=== PATIENT | male | born 1985 | race Caucasian/White ===

== ENCOUNTER 2023-01-29 21:19 | Emergency (ER) | payer BC ==
[2023-01-29] MEDS ORDERED: HYDROmorphone 1 MG/ML Syringe IM ONE ×2 (22:13→23:31)
[2023-01-29] MEDS ORDERED: Dexamethasone 10 MG/ML SDV IM STA (22:13)
[2023-01-29] MEDS ORDERED: Ketorolac 30 MG/ML SDV IM ONE (22:13)
[2023-01-29 23:54] LABS: APPEARANCE,URINE CLEAR; BILIRUBIN,URINE NEGATIVE (NEGATIVE); COLOR,URINE YELLOW; GLUCOSE,URINE NEGATIVE (NEGATIVE); KETONES,URINE NEGATIVE (NEGATIVE); LEUKOCYTE ESTERASE,URINE NEGATIVE (NEGATIVE); NITRITE,URINE NEGATIVE (NEGATIVE); OCCULT BLOOD,URINE TRACE-INTACT (NEGATIVE); PH,URINE 5.5 (5.0-8.0); PROTEIN,URINE NEGATIVE (NEGATIVE); UROBILINOGEN,URINE 0.2 EU/dL (<2.0)
[2023-01-29 23:57] LABS: BACTERIA,URINE RARE (NEGATIVE); EPITHELIAL CELLS,URINE FEW (NONE-FEW); RBC,URINE 0-2 (0-2/HPF); WBC,URINE 0-2 (0-5/HPF)
== END 2023-01-30 00:21 | disposition home or self-care (01) ==
LOC: MW.ED 21:19
DX: M54.50 Low back pain, unspecified (principal)
CPT/HCPCS: 81001; 96372; 99283; J1100; J1170; J1885

== ENCOUNTER 2023-02-12 00:35 | Observation (INO) | payer BC ==
[2023-02-12] MEDS ORDERED: Ondansetron 4 MG/2 ML SDV IVPUSH ONE (01:25)
[2023-02-12 01:30] LABS: BASOPHILS PERCENT AUTO 0.1 % (0.0-1.5); EOSINOPHILS ABSOLUTE AUTO 0.2 K/uL (0.0-0.7); HEMOGLOBIN 14.1 g/dL (13.0-17.0); LYMPHOCYTES ABSOLUTE AUTO 3.1 K/uL (0.6-2.4); LYMPHOCYTES PERCENT AUTO 19.3 % (16.0-40.0); MEAN CORPUSCULAR HEMOGLOBIN 26.6 pg (27.0-32.0); MEAN CORPUSCULAR HGB CONC 32.8 g/dL (31.0-37.0); MONOCYTES ABSOLUTE AUTO 1.1 K/uL (0.0-0.8); NEUTROPHILS ABSOLUTE AUTO 11.5 K/uL (1.4-5.7); NEUTROPHILS PERCENT AUTO 72.6 % (48.0-80.0); NRBC ABSOLUTE 0 K/uL; PLATELET COUNT,PLT 302 K/uL (150-400); RED BLOOD CELL COUNT 5.31 M/uL (4.50-5.90); WHITE BLOOD CELL COUNT,WBC 15.82 K/uL (4.0-11.0)
[2023-02-12] MEDS ORDERED: Morphine 4 MG/ML Syringe IVPUSH ONE (01:42)
[2023-02-12 01:52] LABS: APPEARANCE,URINE CLEAR; BILIRUBIN,URINE NEGATIVE (NEGATIVE); COLOR,URINE YELLOW; GLUCOSE,URINE NEGATIVE (NEGATIVE); KETONES,URINE NEGATIVE (NEGATIVE); LEUKOCYTE ESTERASE,URINE NEGATIVE (NEGATIVE); NITRITE,URINE NEGATIVE (NEGATIVE); OCCULT BLOOD,URINE SMALL (NEGATIVE); PH,URINE 5.5 (5.0-8.0); PROTEIN,URINE NEGATIVE (NEGATIVE); UROBILINOGEN,URINE 0.2 EU/dL (<2.0)
[2023-02-12 01:57] LABS: A/G RATIO 0.8 (0.9-1.6); ALBUMIN 3.7 g/dL (3.4-5.0); BILIRUBIN TOTAL 0.2 mg/dL (0.2-1.0); CALCIUM 9.2 mg/dL (8.5-10.1); CARBON DIOXIDE,CO2 27.6 mmol/L (21.0-32.0); EST CRCL DRUG DOSING (CG) 103.1 mL/min; POTASSIUM,K 4.3 mmol/L (3.5-5.1); PROTEIN TOTAL,TP 8.4 g/dL (6.4-8.2)
[2023-02-12 02:14] LABS: BACTERIA,URINE RARE (NEGATIVE); EPITHELIAL CELLS,URINE RARE (NONE-FEW); RBC,URINE 0-2 (0-2/HPF); WBC,URINE 0-2 (0-5/HPF)
[2023-02-12] MEDS ORDERED: Ketorolac 30 MG/ML SDV IVPUSH ONE (03:19)
[2023-02-12] MEDS ORDERED: Iopamidol 755 MG/ML 500 ML Multipack Bottle IVPUSH ONE (03:20)
[2023-02-12] MEDS ORDERED: Ertapenem 1 GM in Sodium Chloride 0.9% 50 ML IV ONE (04:32)
[2023-02-12] MEDS ORDERED: Sodium Chloride 0.9% 1,000 ML IV STA (04:56)
[2023-02-12] MEDS ORDERED: Ketorolac 30 MG/ML SDV IVPUSH PRN (06:19)
[2023-02-12] MEDS ORDERED: Ondansetron 4 MG/2 ML SDV IVPUSH PRN (06:19)
== END 2023-02-12 11:30 | disposition home or self-care (01) ==
LOC: MW.ED 00:35 → MW.MS 04:49
PROVIDERS: ADMIT Hospitalist; ATTEND Hospitalist
DX: K80.10 Calculus of gallbladder with chronic cholecystitis without obstruction (principal); K76.0 Fatty (change of) liver, not elsewhere classified
CPT/HCPCS: 36415; 74177; 76705; 80053; 81001; 83690; 85025; J1335; J1885; J2270; J2405; J3490; J7030; Q9967; 96365; 96375; 99285-25; G0378

== ENCOUNTER 2024-10-21 22:13 | Observation (INO) | payer BC ==
[2024-10-21 22:52] LABS: BASOPHILS ABSOLUTE AUTO 0.05 K/uL (0.00-0.20); BASOPHILS PERCENT AUTO 0.2 % (0.0-1.0); EOSINOPHILS ABSOLUTE AUTO 0.05 K/uL (0.00-0.45); EOSINOPHILS PERCENT AUTO 0.2 % (0.0-6.0); HEMATOCRIT 42.6 % (42.0-52.0); HEMOGLOBIN 14.3 g/dL (14.0-18.0); IMMATURE GRAN ABSOLUTE AUTO 0.12 K/uL (0.00-0.05); IMMATURE GRAN PERCENT AUTO 0.6 % (0.0-0.4); LYMPHOCYTES ABSOLUTE AUTO 4.43 K/uL (1.00-4.80); LYMPHOCYTES PERCENT AUTO 21.6 % (24.0-44.0); MEAN CORPUSCULAR HEMOGLOBIN 26.1 pg (28.0-32.0); MEAN CORPUSCULAR HGB CONC 33.6 g/dL (32.0-36.0); MEAN CORPUSCULAR VOLUME 77.9 fL (83.0-99.0); MONOCYTES ABSOLUTE AUTO 1.07 K/uL (0.00-0.80); MONOCYTES PERCENT AUTO 5.2 % (0.0-8.0); NEUTROPHILS ABSOLUTE AUTO 14.77 K/uL (1.80-7.70); NEUTROPHILS PERCENT AUTO 72.2 % (41.0-71.0); PLATELET COUNT,PLT 322 K/uL (150-400); RED BLOOD CELL COUNT 5.47 M/uL (4.52-5.90); WHITE BLOOD CELL COUNT,WBC 20.49 K/uL (3.9-11.3)
[2024-10-21] MEDS: Ondansetron 4 MG/2 ML SDV IVPUSH ONE (22:56)
[2024-10-21] MEDS: Ketorolac 30 MG/ML SDV IVPUSH ONE (22:56)
[2024-10-21] MEDS: Morphine 4 MG/ML Syringe IVPUSH ONE (22:57)
[2024-10-21] MEDS: Sodium Chloride 0.9% 1,000 ML IV ONE (22:58)
[2024-10-21 23:38] LABS: A/G RATIO 0.8 (0.9-1.6); ALBUMIN 3.8 g/dL (3.4-5.0); BILIRUBIN TOTAL 0.5 mg/dL (0.2-1.0); CALCIUM 9.2 mg/dL (8.5-10.1); CARBON DIOXIDE,CO2 19.8 mmol/L (21.0-32.0); CREATININE 1.2 mg/dL (0.8-1.3); EST CRCL DRUG DOSING (CG) 81.54 mL/min; POTASSIUM,K 3.4 mmol/L (3.5-5.1); PROTEIN TOTAL,TP 8.7 g/dL (6.4-8.2)
[2024-10-22 00:08] LABS: APPEARANCE,URINE CLEAR; BILIRUBIN,URINE NEGATIVE (NEGATIVE); COLOR,URINE YELLOW; GLUCOSE,URINE NEGATIVE (NEGATIVE); KETONES,URINE >=80 mg/dL (NEGATIVE); LEUKOCYTE ESTERASE,URINE NEGATIVE (NEGATIVE); NITRITE,URINE NEGATIVE (NEGATIVE); OCCULT BLOOD,URINE TRACE-INTACT (NEGATIVE); PROTEIN,URINE 30 mg/dL (NEGATIVE); UROBILINOGEN,URINE 0.2 EU/dL (<2.0)
[2024-10-22 00:18] LABS: BACTERIA,URINE NOT SEEN (NEGATIVE); EPITHELIAL CELLS,URINE RARE (NONE-FEW); MUCUS,URINE LIGHT (NONE-MOD); WBC,URINE 0-2 (0-5/HPF)
[2024-10-22] MEDS: Ketorolac 30 MG/ML SDV IVPUSH STA (00:20)
[2024-10-22] MEDS: Famotidine 20 MG/2 ML SDV IVPUSH ONE (00:20)
[2024-10-22] MEDS: Iopamidol 755 MG/ML 500 ML Multipack Bottle IVPUSH STA (07:24)
[2024-10-22 08:46] LABS: BASOPHILS ABSOLUTE AUTO 0.04 K/uL (0.00-0.20); BASOPHILS PERCENT AUTO 0.2 % (0.0-1.0); EOSINOPHILS ABSOLUTE AUTO 0.02 K/uL (0.00-0.45); EOSINOPHILS PERCENT AUTO 0.1 % (0.0-6.0); HEMOGLOBIN 13.2 g/dL (14.0-18.0); IMMATURE GRAN ABSOLUTE AUTO 0.09 K/uL (0.00-0.05); IMMATURE GRAN PERCENT AUTO 0.5 % (0.0-0.4); LYMPHOCYTES ABSOLUTE AUTO 2.53 K/uL (1.00-4.80); LYMPHOCYTES PERCENT AUTO 14.7 % (24.0-44.0); MEAN CORPUSCULAR HEMOGLOBIN 25.8 pg (28.0-32.0); MEAN CORPUSCULAR VOLUME 78.1 fL (83.0-99.0); MEAN PLATELET VOLUME 9.7 fL (9.4-12.4); MONOCYTES ABSOLUTE AUTO 1.21 K/uL (0.00-0.80); NEUTROPHILS ABSOLUTE AUTO 13.37 K/uL (1.80-7.70); NEUTROPHILS PERCENT AUTO 77.5 % (41.0-71.0); PLATELET COUNT,PLT 297 K/uL (150-400); RED BLOOD CELL COUNT 5.12 M/uL (4.52-5.90); WHITE BLOOD CELL COUNT,WBC 17.26 K/uL (3.9-11.3)
[2024-10-22 09:09] LABS: A/G RATIO 0.7 (0.9-1.6); ALBUMIN 3.5 g/dL (3.4-5.0); BILIRUBIN TOTAL 0.7 mg/dL (0.2-1.0); CALCIUM 8.9 mg/dL (8.5-10.1); CARBON DIOXIDE,CO2 25.3 mmol/L (21.0-32.0); EST CRCL DRUG DOSING (CG) 97.85 mL/min; POTASSIUM,K 3.9 mmol/L (3.5-5.1); PROTEIN TOTAL,TP 8.2 g/dL (6.4-8.2)
[2024-10-22] MEDS: Ampicillin/Sulbactam Na 3 GM in Sodium Chloride 0.9% 100 ML IV ONE (11:31)
[2024-10-22] MEDS: Sodium Chloride 0.9% 10 ML Syringe FLUSH PRN (11:38)
[2024-10-22] MEDS: Sodium Chloride 0.9% 2.5 ML Syringe FLUSH PRN (11:39)
[2024-10-22] MEDS ORDERED: Naloxone 0.4 MG/ML SDV IVPUSH PRN (12:00)
[2024-10-22] MEDS ORDERED: Ondansetron 4 MG/2 ML SDV IVPUSH PRN (12:00)
[2024-10-22] MEDS: Piperacillin/Tazobactam 4.5 GM in Sodium Chloride 0.9% 100 ML IV SCH (12:31)
[2024-10-22] MEDS: Lactated Ringers 1,000 ML IV SCH (14:45)
[2024-10-22] MEDS: Piperacillin/Tazobactam 4.5 GM in Sodium Chloride 0.9% 100 ML IV ONE (17:46)
[2024-10-22] MEDS: Acetaminophen/HYDROcodone 325-5 MG Tab PO PRN (23:44)
[2024-10-23] MEDS: Piperacillin/Tazobactam 4.5 GM in Sodium Chloride 0.9% 100 ML IV SCH (00:54)
[2024-10-23] MEDS: HYDROmorphone 2 MG/ML Syringe IVPUSH PRN (04:48)
[2024-10-23 06:44] LABS: HEMATOCRIT 39.9 % (42.0-52.0); HEMOGLOBIN 12.8 g/dL (14.0-18.0); MEAN CORPUSCULAR HEMOGLOBIN 25.5 pg (28.0-32.0); MEAN CORPUSCULAR HGB CONC 32.1 g/dL (32.0-36.0); MEAN CORPUSCULAR VOLUME 79.5 fL (83.0-99.0); PLATELET COUNT,PLT 246 K/uL (150-400); RED BLOOD CELL COUNT 5.02 M/uL (4.52-5.90); WHITE BLOOD CELL COUNT,WBC 15.69 K/uL (3.9-11.3)
[2024-10-23 07:03] LABS: EOSINOPHILS ABSOLUTE MAN 0.16 K/uL (0.00-0.45); EOSINOPHILS PERCENT MAN 1 % (0-6); LYMPHOCYTES ABSOLUTE MAN 3.77 K/uL (1.00-4.80); LYMPHOCYTES PERCENT MAN 24 % (24-44); MONOCYTES ABSOLUTE MAN 1.26 K/uL (0.00-0.80); MONOCYTES PERCENT MAN 8 % (0-8); SEG NEUTROPHILS ABSOLUTE MAN 10.51 K/uL (1.80-7.70); SEG NEUTROPHILS PERCENT MAN 67 % (41-71)
[2024-10-23 07:10] LABS: A/G RATIO 0.7 (0.9-1.6); ALBUMIN 3.1 g/dL (3.4-5.0); BILIRUBIN TOTAL 1.1 mg/dL (0.2-1.0); CALCIUM 8.6 mg/dL (8.5-10.1); CARBON DIOXIDE,CO2 24.5 mmol/L (21.0-32.0); EST CRCL DRUG DOSING (CG) 101.14 mL/min; POTASSIUM,K 3.7 mmol/L (3.5-5.1); PROTEIN TOTAL,TP 7.4 g/dL (6.4-8.2)
[2024-10-23] MEDS ORDERED: Metoclopramide 10 MG/2 ML SDV IVPUSH PRN (09:39)
[2024-10-23] MEDS ORDERED: fentaNYL 50 MCG/ML SDV IVPUSH PRN (09:39)
[2024-10-23] MEDS ORDERED: Morphine 2 MG/ML SYRINGE IVPUSH PRN (09:39)
[2024-10-23] MEDS ORDERED: Albuterol 0.083% 2.5 MG/3 ML Neb Soln NEB PRN (09:39)
[2024-10-23] MEDS ORDERED: Ondansetron 4 MG/2 ML SDV IVPUSH PRN (09:39)
[2024-10-23] MEDS ORDERED: Naloxone 0.4 MG/ML SDV IVPUSH PRN (09:39)
[2024-10-23] MEDS ORDERED: Phenylephrine HCl In 0.9% NaCl 1 MG/10 ML Syringe IVPUSH PRN (09:39)
[2024-10-23] MEDS ORDERED: HYDROmorphone 1 MG/ML Syringe IVPUSH PRN (09:39)
[2024-10-23] MEDS ORDERED: Bupivacaine 0.25% 30 ML SDV ONE (10:43)
[2024-10-23] MEDS ORDERED: fentaNYL 100 MCG/2 ML SDV ONE ×2 (11:15→13:28)
[2024-10-23] MEDS ORDERED: Propofol 200 MG/20 ML SDV ONE (11:15)
[2024-10-23] MEDS ORDERED: Midazolam 1 MG/ML 2 ML SDV ONE (11:15)
[2024-10-23] MEDS ORDERED: Lidocaine 2% 5 ML SDV ONE (11:16)
[2024-10-23] MEDS ORDERED: Sodium Chloride 0.9% 20 ML ONE (11:18)
[2024-10-23] MEDS ORDERED: dexmedeTOMIDine HCl 200 MCG/2 ML SDV ONE (11:18)
[2024-10-23] MEDS ORDERED: Ropivacaine 0.5% 5 MG/ML 30 ML SDV ONE (11:19)
[2024-10-23] MEDS ORDERED: Rocuronium Bromide 50 MG/5 ML Syringe ONE (11:40)
[2024-10-23] MEDS ORDERED: Ondansetron 4 MG/2 ML SDV ONE (12:15)
[2024-10-23] MEDS ORDERED: Dexamethasone 4 MG/ML 5 ML MDV ONE (12:15)
[2024-10-23] MEDS ORDERED: Sugammadex Sodium 200 MG/2 ML VIAL IV ONE (12:21)
[2024-10-23] MEDS ORDERED: Ketorolac 30 MG/ML SDV ONE (12:21)
[2024-10-23] MEDS ORDERED: Rocuronium 100 MG/10 ML MDV ONE (12:21)
[2024-10-23] MEDS ORDERED: Phenylephrine HCl In 0.9% NaCl 1 MG/10 ML Syringe ONE (13:51)
== END 2024-10-24 13:56 | disposition home or self-care (01) ==
LOC: MW.ED 22:13 → MW.MS 10-22 12:25
PROVIDERS: ADMIT Internal Medicine; ATTEND Surgery
DX: K80.00 Calculus of gallbladder with acute cholecystitis without obstruction (principal); K82.A1 Gangrene of gallbladder in cholecystitis
CPT/HCPCS: 36415; 47562; 64488; 74177; 76705; 80053; 81001; 83690; 85025; 96361; 96365; 96366; 96367; 96375; 96376; 99285; A9270; G0378; J0131; J0295; J0665; J1100; J1171; J1885; J2003; J2250; J2270; J2371; J2405; J2543; J2704; J2795; J3010; J3490; J7030; J7120; Q9967; 00790; 64486; 99284